=== PATIENT | male | born 1985 | race Caucasian/White ===

== ENCOUNTER 2022-01-02 09:53 | Day surgery (SDC) | payer MEDICARE, OTHER ==
[2021-12-30 14:19] LABS: COVID AG,FIA SOURCE NASAL SWAB
[~2022-01-02] VITALS: Ht 144.8 cm; Wt 96.3 kg
[~2022-01-02 09:53] MED LIST: SODIUM CHLORIDE 0.9% 1,000 ML ONE
[2022-01-02] MEDS ORDERED: PROPOFOL 1% 20 ML VIAL IVP ONE (09:54)
[2022-01-02] MEDS ORDERED: LIDOCAINE/PF 2% 5 ML VIAL IM ONE (09:54)
[2022-01-02] MEDS ORDERED: SODIUM CHLORIDE 0.9% 1,000 ML IV ONE (11:00)
== END 2022-01-02 14:00 | disposition home or self-care (01) ==
LOC: SURGERY 09:53
PROVIDERS: ATTEND Internal Medicine Gastroenterology
DX: K64.8 Other hemorrhoids (principal); Q90.9 Down syndrome, unspecified; K76.0 Fatty (change of) liver, not elsewhere classified; Z88.0 Allergy status to penicillin; Z88.2 Allergy status to sulfonamides; Z87.01 Personal history of pneumonia (recurrent); Z98.890 Other specified postprocedural states; Z79.899 Other long term (current) drug therapy
CPT/HCPCS: 45378; 87426; C9803; J2704; J3490; J7030

== ENCOUNTER 2022-01-09 10:03 | Day surgery (SDC) | payer MEDICARE, OTHER ==
[2022-01-06 14:04] LABS: COVID AG,FIA SOURCE NASAL SWAB
[~2022-01-09] VITALS: Ht 144.8 cm; Wt 96.3 kg
[2022-01-09] MEDS ORDERED: SODIUM CHLORIDE 0.9% 1,000 ML IV ONE (11:30)
[2022-01-09] MEDS ORDERED: PROPOFOL 1% 20 ML VIAL IVP ONE (12:00)
[2022-01-09] MEDS ORDERED: LIDOCAINE/PF 2% 5 ML VIAL IM ONE (12:00)
== END 2022-01-09 14:20 | disposition home or self-care (01) ==
LOC: SURGERY 10:03
PROVIDERS: ATTEND Internal Medicine Gastroenterology
DX: K29.50 Unspecified chronic gastritis without bleeding (principal); E66.9 Obesity, unspecified; Q90.9 Down syndrome, unspecified; K76.0 Fatty (change of) liver, not elsewhere classified; Z88.0 Allergy status to penicillin; Z88.2 Allergy status to sulfonamides; Z79.899 Other long term (current) drug therapy
CPT/HCPCS: 43239; 87426; 88305; 88312; 88313; C9803; J2704; J3490; J7030

== ENCOUNTER 2023-11-05 05:56 | Day surgery (SDC) | payer OTHER, MEDICARE ==
[~2023-11-05] VITALS: Ht 144.8 cm; Wt 109.1 kg
[~2023-11-05 05:56] MED LIST changes: +RINGERS SOLUTION,LACTATED 1,000 ML IV ONE; -SODIUM CHLORIDE 0.9% 1,000 ML ONE
[2023-11-05] MEDS ORDERED: ONDANSETRON HCL 4 MG/2 ML VIAL IVP ONE (05:57)
[2023-11-05] MEDS ORDERED: DEXAMETHASONE SOD PHOS 4 MG/ML VIAL IVP ONE (05:57)
[2023-11-05] MEDS ORDERED: ROCURONIUM BROMIDE 10 MG/ML 5 ML VIAL IVP ONE (05:57)
[2023-11-05] MEDS ORDERED: METOCLOPRAMIDE HCL 5 MG/ML 2 ML VIAL IVP ONE (05:57)
[2023-11-05] MEDS ORDERED: LIDOCAINE/PF 2% 5 ML VIAL IM ONE (05:57)
[2023-11-05] MEDS ORDERED: PROPOFOL 1% 20 ML VIAL IVP ONE (05:57)
[2023-11-05] MEDS ORDERED: SUGAMMADEX SODIUM 200 MG/2 ML VIAL IVP ONE (05:57)
[2023-11-05] MEDS ORDERED: CLINDAMYCIN 600 MG/D5% WATER 50 ML IV ONE (07:30)
[2023-11-05 07:41] LABS: BASOPHILS % (AUTO) 1.7 % (0.0-2.0); HEMOGLOBIN 14.9 g/dL (13.5-17.5); LYMPHOCYTES # (AUTO) 3.5 K/uL (1.0-4.8); LYMPHOCYTES % (AUTO) 45.7 % (22.0-44.0); MEAN CORPUSCULAR HEMOGLOBIN 33.7 pg (26.0-34.0); MEAN CORPUSCULAR HGB CONC 33.8 G/dL (31.0-37.0); MEAN CORPUSCULAR VOLUME 100 fL (80-100); MONOCYTES # (AUTO) 0.5 K/uL (0.1-1.0); MONOCYTES % (AUTO) 7.2 % (2.0-9.0); NEUTROPHILS # (AUTO) 3.3 K/uL (1.8-7.7); NEUTROPHILS % (AUTO) 43.4 % (40.0-70.0); PLATELET COUNT (AUTO) 110 K/uL (150-450); RED BLOOD CELL COUNT(AUTO) 4.41 MIL/uL (4.50-5.90); RED CELL DISTRIBUTION WIDTH 15.1 % (11.5-14.5); WHITE BLOOD COUNT (AUTO) 7.6 K/uL (4.5-11.0)
[2023-11-05 07:51] LABS: INR 1.1 (0.9-1.1); PROTHROMBIN TIME 11.4 SEC (9.4-11.6)
[2023-11-05 08:05] LABS: ANION GAP 9 mmol/L (8-16); CARBON DIOXIDE 26 mmol/L (22-29); CHLORIDE 103 mmol/L (98-107); CREATININE 0.87 mg/dL (0.60-1.30); GLOMERULAR FILTR. RATE CALC > 60 mL/min (>60); GLUCOSE,RANDOM 115 mg/dL (70-110); SODIUM SERUM 138 mmol/L (136-145); UREA NITROGEN, BLOOD 10 mg/dL (7-18)
[2023-11-05 08:06] LABS: ALANINE AMINOTRANSFERASE 80 U/L (12-78); ALBUMIN 2.8 g/dL (3.4-5.0); ALKALINE PHOSPHATASE 186 U/L (46-116); ASPARTATE AMINOTRANSFERASE 53 U/L (15-37); BILIRUBIN,TOTAL 0.3 mg/dL (0.1-1.0); TOTAL PROTEIN, SERUM 8.8 g/dL (6.4-8.2)
[2023-11-05] MEDS: RINGERS SOLUTION,LACTATED 1,000 ML IV ONE (08:39)
== END 2023-11-05 11:50 | disposition home or self-care (01) ==
LOC: SURGERY 05:56
PROVIDERS: ATTEND Dentist General Practice
DX: K05.30 Chronic periodontitis, unspecified (principal); K02.9 Dental caries, unspecified; K03.6 Deposits [accretions] on teeth; Q90.9 Down syndrome, unspecified; E66.9 Obesity, unspecified; Z79.899 Other long term (current) drug therapy; Z98.890 Other specified postprocedural states; Z79.01 Long term (current) use of anticoagulants
CPT/HCPCS: 41899; 71045; 80053; 85025; 85610; 85730; 36415; 93005; J2704; J3490 ×3; J1100; J2765; J2405; Q9967; J7120